=== PATIENT | female | born 1940 | race Hispanic/Latino ===

== ENCOUNTER 2019-08-13 23:52 | Inpatient (IN) | payer OTHER ==
[~2019-08-13] VITALS: Ht 175.3 cm; Wt 122.2 kg
[2019-08-14 00:35] LABS: BASOPHILS % (AUTO) 0.4 % (0.0-5.0); EOSINOPHILS % (AUTO) 1.2 % (0.0-8.0); HEMATOCRIT 37.8 % (36-48); LYMPHOCYTES % (AUTO) 11.7 % (21.0-51.0); MEAN CORPUSCULAR HEMOGLOBIN 25.4 pg (27.0-33.0); MEAN CORPUSCULAR HGB CONC 30.7 g/dL (32.0-36.0); MEAN CORPUSCULAR VOLUME 82.9 fL (79-99); MONOCYTES % (AUTO) 7.5 % (3.0-13.0); NEUTROPHILS % (AUTO) 78.8 % (40.0-77.0); PLATELET COUNT (AUTO) 291 K/uL (130-400); RED BLOOD CELL COUNT(AUTO) 4.56 MIL/uL (4.00-5.50); RED CELL DISTRIBUTION WIDTH 13.8 % (11.0-15.5); WHITE BLOOD COUNT (AUTO) 9.6 K/uL (4.8-10.8)
[2019-08-14 00:44] LABS: CREATININE 0.9 mg/dL (0.5-1.5)
[2019-08-14 00:48] LABS: INR 0.98 (0.85-1.15); PARTIAL THROMBOPLASTIN TIME 33.5 SEC (26.3-35.5); PROTHROMBIN TIME 10.6 SEC (9.6-11.6)
[2019-08-14 00:49] LABS: ALBUMIN 2.9 g/dL (3.5-5.0); BILIRUBIN,TOTAL 0.3 mg/dL (0.2-1.0); TOTAL PROTEIN, SERUM 8.4 g/dL (6.0-8.3)
[2019-08-14 00:52] LABS: CRP QUANTITATIVE 164.7 mg/L (0.00-9.0)
[2019-08-14 01:39] LABS: B-TYPE NATRIURETIC PEPTIDE 356 pg/mL (0-100); ERYTHROCYTE SEDIMENTATION RATE 63 MM/HR (0-30)
[2019-08-14] MEDS ORDERED: ZOSYN 3.375GM+NS 50ML 50 ML IV ONE (03:01)
[2019-08-14] MEDS ORDERED: ONDANSETRON HCL 4 MG/2 ML VIAL IV PRN (04:00)
[2019-08-14] MEDS ORDERED: ACETAMINOPHEN 325 MG TAB PO PRN ×2 (04:00)
[2019-08-14] MEDS ORDERED: GUAIFENESIN-DM 200/20 MG 10 ML PO PRN (04:00)
[2019-08-14] MEDS: ZOSYN 3.375GM+NS 50ML 50 ML IV SCH ×2 (05:15→15:31)
[2019-08-14] MEDS ORDERED: VANCOMYCIN PROTOCOL PER PHARMACY IV SCH (05:15)
--- NOTE | 2019-08-14 06:15 | NUR ---
Admission Assessment Received pt from ED per stretcher with granddaughter Aubrie Quintero, routine admission assessment done, plan of care discuss & reviewed all orders, re-discuss all lab works & aware pending results for the rest of the radiologic studies. Per Ms. Alfred stated that pt does not go to see her PCP, she takes care care of her wound the way she wanted it, applies some cream, covers it with toilet paper. Rt index finger claimed starts swelling last Thursday, left lower knee wound started last January 2019, the puncture like wound left lower leg has been years old, never closes. All wounds noted with purulent drainage, obtain specimen for culture on all sites, cleans with NS, pat dry, cover with 4x4 gauze, wrapped with Kerlix secure with Medipore tape. Lower extremity wound noted with slight foul odor. Pictures was taken but unable to print as non working printer available at this time. Ms. Alfred made aware to bring any medication pt has been taking, stated will being it later this PM. Pt refused to have any type of vaccination at this time.
[2019-08-14 08:17] VITALS: BP 145/81
[2019-08-14] MEDS: FAMOTIDINE 20MG TAB 20 MG TAB PO SCH ×2 (08:32→19:28)
[2019-08-14] MEDS: ENOXAPARIN SODIUM 30 MG/0.3 ML SQ SCH (08:32)
--- NOTE | 2019-08-14 08:45 | NUR ---
Re: wound drainage specimen Wound drainage specimen collected given to Lulu DASILVA as we are still pending order for it. Also made aware I am not able to print pictures of the wound as no working printer available at this time. Dr. Morris / Dr. Candelaria pending notification of the consults.
[2019-08-14 10:58] VITALS: BP 133/56
--- NOTE | 2019-08-14 11:49 | NUR ---
SPOKE WITH DR. MELGOZA MADE AWARE OF NEW CONSULT. WILL SEE PATIENT THIS AFTERNOON. PREPARE PATIENT FOR POSSIBLE I&D AT THE BEDSIDE
[2019-08-14] MEDS ORDERED: COMPOUND IV REFRIGERATED 1 EACH IVSOLN MISC PRN (12:00)
[2019-08-14] MEDS: VANCOMYCIN 1.25 GM in SODIUM CHLORIDE 0.9% 250 ML IV SCH ×2 (12:29→23:21)
[2019-08-14] MEDS ORDERED: LIDOCAINE HCL 1% 20 ML VIAL INJ SCH (12:30)
--- NOTE | 2019-08-14 14:55 | NUR ---
SPOKE WITH DR. MARTINEZ MADE AWARE OF NEW CONSULT. STATED WILL BE IN TO SEE PATIENT TOMORROW
[2019-08-14 15:41] VITALS: BP 140/70
--- NOTE | 2019-08-14 16:31 | NUR ---
SCOTT MIN VISITED WITH PATIENT. PATIENT SAYS SHE IS FROM [facility] HERE WITH A PASSPORT VISITING FAMILY. SAID SHE IS STAYING WITH DAUGHTER. THEY ARE WANTING TO MOVE HERE TO THE [facility] AND TRYING TO GET HER PAPERS. SAYS HAS A WALKER AND WHEEL CHAIR AT HOME. IF SHE GOES TO [facility] THEN SHE LIVES ALONE AND NEEDS HELP. I EXPLAINED THAT SINCE SHE IS DOES NOT HAVE INSURANCE FAMILY MIGHT NEED TO BE TAUGHT HOW TO DO WOUND CARE. SAID FAMILY WANTING HER TO MOVE IN WITH THEM ANYWAY. Addendum: 08/14/19 at 1634 by SERENA FLORIAN RN CM Amended: Links added.
[2019-08-14 19:55] VITALS: BP 132/64
[2019-08-14] MEDS ORDERED: MORPHINE SULFATE 2 MG/ML 1ML SYG IVP PRN (23:15)
[2019-08-14] MEDS ORDERED: MORPHINE SULFATE 2 MG/ML 1ML SYG ONE (23:23)
[2019-08-14 23:56] VITALS: BP 142/60
[2019-08-15] MEDS: ZOSYN 3.375GM+NS 50ML 50 ML IV SCH ×2 (03:45→18:19)
[2019-08-15 03:58] VITALS: BP 172/72
[2019-08-15 04:36] VITALS: BP 150/73
[2019-08-15 05:58] LABS: BASOPHILS % (AUTO) 0.4 % (0.0-5.0); EOSINOPHILS % (AUTO) 3.3 % (0.0-8.0); HEMATOCRIT 32.9 % (36-48); LYMPHOCYTES % (AUTO) 21.2 % (21.0-51.0); MEAN CORPUSCULAR HEMOGLOBIN 25.7 pg (27.0-33.0); MEAN CORPUSCULAR HGB CONC 30.7 g/dL (32.0-36.0); MEAN CORPUSCULAR VOLUME 83.7 fL (79-99); MONOCYTES % (AUTO) 8.3 % (3.0-13.0); NEUTROPHILS % (AUTO) 66.3 % (40.0-77.0); PLATELET COUNT (AUTO) 251 K/uL (130-400); RED BLOOD CELL COUNT(AUTO) 3.93 MIL/uL (4.00-5.50); RED CELL DISTRIBUTION WIDTH 14.2 % (11.0-15.5); WHITE BLOOD COUNT (AUTO) 7.8 K/uL (4.8-10.8)
[2019-08-15 06:41] LABS: CREATININE 0.8 mg/dL (0.5-1.5); POTASSIUM 3.6 mmol/L (3.5-5.1)
[2019-08-15 08:00] VITALS: BP 125/63
[2019-08-15] MEDS: SODIUM HYPOCHLORITE 0.5% [FULL STRENGTH] 473 ML TOPICAL SOLN TP SCH (09:15)
[2019-08-15] MEDS: FAMOTIDINE 20MG TAB 20 MG TAB PO SCH ×2 (10:30→22:34)
[2019-08-15] MEDS: ENOXAPARIN SODIUM 30 MG/0.3 ML SQ SCH (10:31)
[2019-08-15 12:00] VITALS: BP 140/75
[2019-08-15] MEDS: VANCOMYCIN 1.25 GM in SODIUM CHLORIDE 0.9% 250 ML IV SCH (13:57)
[2019-08-15 15:59] LABS: HEMOGLOBIN A1C 5.7 % (4.0-6.0)
[2019-08-15 16:00] VITALS: BP 140/74
[2019-08-15 20:00] VITALS: BP 135/69
[2019-08-16] VITALS (7 sets, daily range): BP systolic 134–174; BP diastolic 67–85
[2019-08-16] MEDS: VANCOMYCIN 1.25 GM in SODIUM CHLORIDE 0.9% 250 ML IV SCH ×2
[2019-08-16 04:05] LABS: BASOPHILS % (AUTO) 0.5 % (0.0-5.0); EOSINOPHILS % (AUTO) 5.2 % (0.0-8.0); HEMATOCRIT 32.1 % (36-48); LYMPHOCYTES % (AUTO) 23.2 % (21.0-51.0); MEAN CORPUSCULAR HEMOGLOBIN 25.3 pg (27.0-33.0); MEAN CORPUSCULAR HGB CONC 30.5 g/dL (32.0-36.0); MEAN CORPUSCULAR VOLUME 82.9 fL (79-99); MONOCYTES % (AUTO) 9.9 % (3.0-13.0); NEUTROPHILS % (AUTO) 60.9 % (40.0-77.0); PLATELET COUNT (AUTO) 223 K/uL (130-400); RED BLOOD CELL COUNT(AUTO) 3.87 MIL/uL (4.00-5.50); RED CELL DISTRIBUTION WIDTH 14.2 % (11.0-15.5); WHITE BLOOD COUNT (AUTO) 6.2 K/uL (4.8-10.8)
[2019-08-16 04:20] LABS: CREATININE 1.1 mg/dL (0.5-1.5); POTASSIUM 3.8 mmol/L (3.5-5.1)
[2019-08-16] MEDS: SODIUM HYPOCHLORITE 0.5% [FULL STRENGTH] 473 ML TOPICAL SOLN TP SCH (09:00)
[2019-08-16] MEDS: FAMOTIDINE 20MG TAB 20 MG TAB PO SCH ×2 (12:15→22:21)
[2019-08-16] MEDS: VANCOMYCIN 1.5 GM in SODIUM CHLORIDE 0.9% 250 ML IV SCH (12:16)
[2019-08-16] MEDS: ENOXAPARIN SODIUM 30 MG/0.3 ML SQ SCH (12:16)
--- NOTE | 2019-08-16 13:48 | NUR ---
RD Notification - Trigger Pt admitted for Left Leg cellulitis. Pt tolerating Heart Healthy diet order with no report of GI distress. Recommend to continue current diet order. Pt with Cellulitis and Left knee ulcer; Recommend Elmer BID, 500mg vitamin C QD, 220mg Zinc QD for wound healing support. RD to follow up with Weight loss nutrition education. RD to continue to monitor. Please notify RD as additional nutrition concerns arise. Thank you. Addendum: 08/16/19 at [address] RD Amended: Links added.
[2019-08-16] MEDS: ZOSYN 3.375GM+NS 50ML 50 ML IV SCH (17:26)
[2019-08-17 03:00] VITALS: BP 159/68
[2019-08-17 05:05] LABS: BASOPHILS % (AUTO) 0.5 % (0.0-5.0); EOSINOPHILS % (AUTO) 5.3 % (0.0-8.0); HEMATOCRIT 34.2 % (36-48); LYMPHOCYTES % (AUTO) 26.2 % (21.0-51.0); MEAN CORPUSCULAR HEMOGLOBIN 24.9 pg (27.0-33.0); MEAN CORPUSCULAR HGB CONC 29.8 g/dL (32.0-36.0); MEAN CORPUSCULAR VOLUME 83.4 fL (79-99); MONOCYTES % (AUTO) 7.5 % (3.0-13.0); NEUTROPHILS % (AUTO) 60.1 % (40.0-77.0); PLATELET COUNT (AUTO) 232 K/uL (130-400); RED CELL DISTRIBUTION WIDTH 13.9 % (11.0-15.5); WHITE BLOOD COUNT (AUTO) 5.6 K/uL (4.8-10.8)
[2019-08-17] MEDS: ZOSYN 3.375GM+NS 50ML 50 ML IV SCH ×2 (05:12→17:15)
[2019-08-17 05:18] LABS: CREATININE 0.8 mg/dL (0.5-1.5)
[2019-08-17 08:11] VITALS: BP 177/78
[2019-08-17] MEDS: FAMOTIDINE 20MG TAB 20 MG TAB PO SCH (09:36)
[2019-08-17] MEDS: ENOXAPARIN SODIUM 30 MG/0.3 ML SQ SCH (09:38)
[2019-08-17] MEDS: SODIUM HYPOCHLORITE 0.5% [FULL STRENGTH] 473 ML TOPICAL SOLN TP SCH (09:44)
[2019-08-17 11:12] VITALS: BP 142/88
[2019-08-17] MEDS: VANCOMYCIN 1.5 GM in SODIUM CHLORIDE 0.9% 250 ML IV SCH (12:16)
--- NOTE | 2019-08-17 13:07 | NUR ---
NOTE MADE OF CULTURES WILL ASK ABOUT PO LEVBUSHRAUIN ON DISCHARGE. Addendum: 08/17/19 at 1308 by LEANDRO LEONARD RN CM Amended: Links added.
--- NOTE | 2019-08-17 14:08 | NUR ---
Called Dr. Candelaria's office to set up follow up appointment in 2 weeks per written order. Per office staff, since patient self-pay, needs to come into office to make financial arrangements and than can schedule appointment.
[2019-08-17 16:00] VITALS: BP 157/73
[2019-08-17 19:00] VITALS: BP 164/75
--- NOTE | 2019-08-17 20:40 | NUR ---
Discharge instructions provided to patient and family, dressing changes demonstrated and described to family with emphasis on proper hand hygiene before, during and after wound care. Discharge pictures taken and patient instructed to follow up with physician once selected for progress of infection and wounds. Prescription for antibiotic given to patient and family, verbalized understanding.
== END 2019-08-17 21:40 | disposition home or self-care (01) | DRG 637 ==
LOC: EDH 23:52 → EDHIP 23:53 → 4CH 08-14 05:16
PROVIDERS: ADMIT Family Medicine; ATTEND Family Medicine
DX: E11.69 Type 2 diabetes mellitus with other specified complication (principal); J15.6 Pneumonia due to other Gram-negative bacteria; M86.8X4 Other osteomyelitis, hand; L03.116 Cellulitis of left lower limb; L02.511 Cutaneous abscess of right hand; L03.113 Cellulitis of right upper limb; L97.829 Non-pressure chronic ulcer of other part of left lower leg with unspecified severity; L03.011 Cellulitis of right finger; E66.01 Morbid (severe) obesity due to excess calories; Z68.39 Body mass index [BMI] 39.0-39.9, adult; I10 Essential (primary) hypertension; Z89.021 Acquired absence of right finger(s)
CPT/HCPCS: 36415; 71045; 73140; 73562; 73590; 80048; 80053; 80202; 82550; 82948; 83036; 83605; 83880; 84484; 85025; 85610; 85651; 85730; 86140; 87040; 87070; 87076; 87077; 87186; 93005; G0378; J1650; J2543; J3370; J7030

== ENCOUNTER 2021-06-14 00:57 | Inpatient (IN) | payer MEDICAID, OTHER ==
[~2021-06-14] VITALS: Ht 157.5 cm; Wt 108.0 kg
[2021-06-14 02:36] LABS: BASOPHILS % (AUTO) 0.3 % (0.0-5.0); EOSINOPHILS % (AUTO) 0.3 % (0.0-8.0); HEMATOCRIT 36.8 % (36-48); LYMPHOCYTES % (AUTO) 11.3 % (21.0-51.0); MEAN CORPUSCULAR HEMOGLOBIN 25.9 pg (27.0-33.0); MEAN CORPUSCULAR HGB CONC 31.3 g/dL (32.0-36.0); MEAN CORPUSCULAR VOLUME 82.9 fL (79-99); MONOCYTES % (AUTO) 9.3 % (3.0-13.0); NEUTROPHILS % (AUTO) 78.1 % (40.0-77.0); PLATELET COUNT (AUTO) 261 K/uL (130-400); RED BLOOD CELL COUNT(AUTO) 4.44 MIL/uL (4.00-5.50); RED CELL DISTRIBUTION WIDTH 14.1 % (11.0-15.5); WHITE BLOOD COUNT (AUTO) 14.7 K/uL (4.8-10.8)
[2021-06-14 02:48] LABS: CREATININE 1.2 mg/dL (0.5-1.5); POTASSIUM 3.8 mmol/L (3.5-5.1)
[2021-06-14 02:53] LABS: ALBUMIN 2.6 g/dL (3.5-5.0); BILIRUBIN,TOTAL 0.5 mg/dL (0.2-1.0); TOTAL PROTEIN, SERUM 7.6 g/dL (6.0-8.3)
[2021-06-14] MEDS ORDERED: ZOSYN 3.375GM +NS 50ML IV STA (04:11)
[2021-06-14] MEDS ORDERED: 0.9%NACL 50ML 50 ML IV ONE (04:23)
[2021-06-14] MEDS: ZOSYN 3.375GM+NS 50ML 50 ML IV SCH ×3 (05:00→20:46)
[2021-06-14 06:10] VITALS: BP 134/65
[2021-06-14 07:35] VITALS: BP 134/71
[2021-06-14 08:48] LABS: APPEARANCE,URINE CLOUDY (CLEAR); BILIRUBIN,URINE NEGATIVE (NEGATIVE); COLOR,URINE YELLOW (YELLOW); GLUCOSE, URINE (UA) NEGATIVE (NEGATIVE); KETONES,URINE NEGATIVE (NEGATIVE); LEUKOCYTE ESTERASE ,URINE MODERATE (NEGATIVE); NITRATE,URINE NEGATIVE (NEGATIVE); OCCULT BLOOD,URINE SMALL (NEGATIVE); PROTEIN,URINE 30 mg/dL (NEGATIVE); UROBILINOGEN,URINE 0.2 mg/dL (0.2-1.0)
[2021-06-14 09:06] LABS: BACTERIA,URINE Many /HPF (None Seen); RBC,URINE 0-1 /HPF (0-1); SQUAMOUS EPITHELIAL CELL,UR Few /HPF (0-2); WBC,URINE 51-100 /HPF (0-1)
[2021-06-14] MEDS: FAMOTIDINE 20MG TAB PO SCH (09:26)
[2021-06-14] MEDS: ENOXAPARIN SODIUM 40 MG/0.4 ML SYRINGE SQ SCH (09:31)
[2021-06-14 11:05] VITALS: BP 150/73
[2021-06-14 14:50] VITALS: BP 192/90
[2021-06-14] MEDS: ACETAMINOPHEN 325 MG TAB PO PRN (17:46)
[2021-06-14 19:48] VITALS: BP 140/71
[2021-06-15] VITALS: BP 143/74
[2021-06-15 04:01] VITALS: BP 160/87
[2021-06-15] MEDS: ZOSYN 3.375GM+NS 50ML 50 ML IV SCH ×3 (04:02→21:02)
[2021-06-15] MEDS: ACETAMINOPHEN 325 MG TAB PO PRN (04:02)
[2021-06-15 04:29] LABS: BASOPHILS % (AUTO) 0.3 % (0.0-5.0); EOSINOPHILS % (AUTO) 1.6 % (0.0-8.0); LYMPHOCYTES % (AUTO) 17.1 % (21.0-51.0); MEAN CORPUSCULAR HEMOGLOBIN 26.7 pg (27.0-33.0); MEAN CORPUSCULAR HGB CONC 31.8 g/dL (32.0-36.0); MONOCYTES % (AUTO) 9.9 % (3.0-13.0); NEUTROPHILS % (AUTO) 70.3 % (40.0-77.0); PLATELET COUNT (AUTO) 224 K/uL (130-400); RED BLOOD CELL COUNT(AUTO) 4.05 MIL/uL (4.00-5.50)
[2021-06-15 04:46] LABS: CREATININE 0.9 mg/dL (0.5-1.5); MAGNESIUM 2.2 mg/dL (1.80-2.40); PHOSPHORUS 3.1 mg/dL (2.5-4.9); POTASSIUM 3.5 mmol/L (3.5-5.1)
[2021-06-15 07:25] VITALS: BP 152/68
[2021-06-15] MEDS: FAMOTIDINE 20MG TAB PO SCH (08:58)
[2021-06-15] MEDS: ENOXAPARIN SODIUM 40 MG/0.4 ML SYRINGE SQ SCH (08:59)
[2021-06-15 11:20] VITALS: BP 126/51
[2021-06-15 15:15] VITALS: BP 139/116
[2021-06-15] MEDS ORDERED: IOHEXOL 350 MG/ML 100ML INFUS..BTL IV ONE (18:51)
[2021-06-15 20:04] VITALS: BP 181/83
[2021-06-16 00:29] VITALS: BP 171/75
[2021-06-16] MEDS ORDERED: HYDRALAZINE 20MG/ML VIAL ONE (01:09)
[2021-06-16] MEDS ORDERED: HYDRALAZINE 20MG/ML VIAL IV ONE (01:30)
[2021-06-16] MEDS ORDERED: MORPHINE 2 MG SYG IVP PRN (01:30)
[2021-06-16] MEDS: ZOSYN 3.375GM+NS 50ML 50 ML IV SCH ×3 (04:48→22:00)
[2021-06-16 05:00] VITALS: BP 163/73
[2021-06-16 05:10] LABS: BASOPHILS % (AUTO) 0.3 % (0.0-5.0); HEMATOCRIT 34.8 % (36-48); LYMPHOCYTES % (AUTO) 27.3 % (21.0-51.0); MEAN CORPUSCULAR HEMOGLOBIN 25.3 pg (27.0-33.0); MEAN CORPUSCULAR HGB CONC 30.7 g/dL (32.0-36.0); MEAN CORPUSCULAR VOLUME 82.3 fL (79-99); MONOCYTES % (AUTO) 10.3 % (3.0-13.0); NEUTROPHILS % (AUTO) 57.6 % (40.0-77.0); PLATELET COUNT (AUTO) 233 K/uL (130-400); RED BLOOD CELL COUNT(AUTO) 4.23 MIL/uL (4.00-5.50); RED CELL DISTRIBUTION WIDTH 14.1 % (11.0-15.5); WHITE BLOOD COUNT (AUTO) 6.3 K/uL (4.8-10.8)
[2021-06-16 05:22] LABS: CREATININE 0.8 mg/dL (0.5-1.5); POTASSIUM 3.4 mmol/L (3.5-5.1)
[2021-06-16] MEDS ORDERED: POTASSIUM CHLORIDE 10% ELIXIR 20 MEQ/15 ML UDCUP PO PRN (06:00)
[2021-06-16] MEDS: KCL 20 MEQ ERTAB PO PRN ×2 (06:25→08:26)
[2021-06-16 07:30] VITALS: BP 122/74
[2021-06-16] MEDS: METOPROLOL TARTRATE 25 MG TAB PO SCH ×2 (08:25→22:00)
[2021-06-16] MEDS: FAMOTIDINE 20MG TAB PO SCH (08:25)
[2021-06-16] MEDS: ENOXAPARIN SODIUM 40 MG/0.4 ML SYRINGE SQ SCH (08:26)
[2021-06-16 11:00] VITALS: BP 148/60
[2021-06-16 17:04] VITALS: BP 163/58
[2021-06-16 20:00] VITALS: BP 152/69
[2021-06-17] VITALS (7 sets, daily range): BP systolic 146–167; BP diastolic 59–88
[2021-06-17 04:49] LABS: CREATININE 0.9 mg/dL (0.5-1.5); POTASSIUM 4.2 mmol/L (3.5-5.1)
[2021-06-17] MEDS: ZOSYN 3.375GM+NS 50ML 50 ML IV SCH ×3 (04:52→20:23)
[2021-06-17] MEDS: ENOXAPARIN SODIUM 40 MG/0.4 ML SYRINGE SQ SCH (09:00)
[2021-06-17] MEDS: FAMOTIDINE 20MG TAB PO SCH (10:28)
[2021-06-17] MEDS: METOPROLOL TARTRATE 25 MG TAB PO SCH ×2 (10:28→20:23)
[2021-06-17] MEDS ORDERED: LIDOCAINE HCL MPF 1% 5ML VIAL ONE (15:01)
[2021-06-17] MEDS ORDERED: LIDOCAINE HCL MPF 1% 5ML VIAL IV SCH (20:30)
[2021-06-17] MEDS: SODIUM HYPOCHLORITE 0.125% 473 ML SOLUTION TP SCH (20:46)
[2021-06-18 03:48] VITALS: BP 151/73
[2021-06-18] MEDS: ZOSYN 3.375GM+NS 50ML 50 ML IV SCH (04:57)
[2021-06-18 08:04] VITALS: BP 143/73
[2021-06-18] MEDS: SODIUM HYPOCHLORITE 0.125% 473 ML SOLUTION TP SCH ×2 (09:00→21:16)
[2021-06-18] MEDS: FAMOTIDINE 20MG TAB PO SCH (09:51)
[2021-06-18] MEDS: ENOXAPARIN SODIUM 40 MG/0.4 ML SYRINGE SQ SCH (09:51)
[2021-06-18] MEDS: METOPROLOL TARTRATE 25 MG TAB PO SCH ×2 (09:52→21:16)
[2021-06-18 12:00] VITALS: BP 177/74
[2021-06-18] MEDS: CEFTRIAXONE 2GM VIAL IVP SCH (12:19)
[2021-06-18 16:00] VITALS: BP 151/75
[2021-06-18 20:00] VITALS: BP 141/91
[2021-06-19] VITALS: BP 153/71
[2021-06-19 04:00] VITALS: BP 152/70
[2021-06-19 07:30] VITALS: BP 174/71
[2021-06-19] MEDS: FAMOTIDINE 20MG TAB PO SCH (08:27)
[2021-06-19] MEDS: METOPROLOL TARTRATE 25 MG TAB PO SCH ×2 (08:28→21:13)
[2021-06-19] MEDS: ENOXAPARIN SODIUM 40 MG/0.4 ML SYRINGE SQ SCH (08:28)
[2021-06-19] MEDS: SODIUM HYPOCHLORITE 0.125% 473 ML SOLUTION TP SCH ×2 (08:28→21:13)
[2021-06-19 12:00] VITALS: BP 148/69
[2021-06-19] MEDS: CEFTRIAXONE 2GM VIAL IVP SCH (12:02)
[2021-06-19 17:41] VITALS: BP 160/71
[2021-06-19 20:00] VITALS: BP 165/74
[2021-06-19] MEDS: ACETAMINOPHEN 325 MG TAB PO PRN (21:20)
[2021-06-20] VITALS: BP 160/80
[2021-06-20 03:53] VITALS: BP 170/80
[2021-06-20 04:00] VITALS: BP 155/68
[2021-06-20] MEDS: FAMOTIDINE 20MG TAB PO SCH (08:14)
[2021-06-20] MEDS: METOPROLOL TARTRATE 25 MG TAB PO SCH (08:14)
[2021-06-20] MEDS: ENOXAPARIN SODIUM 40 MG/0.4 ML SYRINGE SQ SCH (08:15)
[2021-06-20 08:30] VITALS: BP 163/78
[2021-06-20] MEDS: CEFTRIAXONE 2GM VIAL IVP SCH (10:34)
[2021-06-20 11:49] VITALS: BP 148/67
[2021-06-20] MEDS: SODIUM HYPOCHLORITE 0.125% 473 ML SOLUTION TP SCH (12:00)
[2021-06-20] MEDS ORDERED: LEVO500T90 PO (12:08)
[2021-06-20] MEDS ORDERED: METO25TA6 PO (12:08)
[2021-06-20] MEDS ORDERED: LISI5TAB21 PO (12:08)
[2021-06-20] MEDS ORDERED: CEFU500T67 PO (12:08)
[2021-06-20] MEDS ORDERED: LISINOPRIL 5 MG TABLET PO SCH (12:30)
[2021-06-20 12:41] LABS: BASOPHILS % (AUTO) 0.9 % (0.0-5.0); EOSINOPHILS % (AUTO) 5.6 % (0.0-8.0); HEMATOCRIT 39.3 % (36-48); LYMPHOCYTES % (AUTO) 23.1 % (21.0-51.0); MEAN CORPUSCULAR VOLUME 86.6 fL (79-99); MONOCYTES % (AUTO) 6.8 % (3.0-13.0); NEUTROPHILS % (AUTO) 61.5 % (40.0-77.0); PLATELET COUNT (AUTO) 281 K/uL (130-400); RED BLOOD CELL COUNT(AUTO) 4.54 MIL/uL (4.00-5.50); RED CELL DISTRIBUTION WIDTH 14.3 % (11.0-15.5)
[2021-06-20 12:45] LABS: CREATININE 0.9 mg/dL (0.5-1.5); POTASSIUM 3.6 mmol/L (3.5-5.1)
[2021-06-20 12:49] LABS: ALBUMIN 2.6 g/dL (3.5-5.0); BILIRUBIN,TOTAL 0.1 mg/dL (0.2-1.0); CRP QUANTITATIVE 29.7 mg/L (0.00-9.0); TOTAL PROTEIN, SERUM 7.4 g/dL (6.0-8.3)
[2021-06-20] MEDS ORDERED: METRONIDAZOLE 500 MG TABLET PO SCH (14:30)
[2021-06-20 14:47] LABS: ERYTHROCYTE SEDIMENTATION RATE 68 MM/HR (0-30)
[2021-06-20] MEDS ORDERED: SODIUM HYPOCHLORITE 0.125% 473 ML SOLUTION TP SCH (21:00)
== END 2021-06-20 14:30 | disposition home or self-care (01) | DRG 872 ==
LOC: EDH 00:57 → EDHIP 00:58 → 3CH 05:20 → 4DH 06-20 05:45
PROVIDERS: ADMIT Internal Medicine; ATTEND Internal Medicine
PROC: 0HBLXZX Excision of Left Lower Leg Skin, External Approach, Diagnostic (ICD-10-PCS; principal; 2021-06-17)
DX: A41.50 Gram-negative sepsis, unspecified (principal); L03.116 Cellulitis of left lower limb; N39.0 Urinary tract infection, site not specified; E44.0 Moderate protein-calorie malnutrition; L97.829 Non-pressure chronic ulcer of other part of left lower leg with unspecified severity; Z68.41 Body mass index [BMI] 40.0-44.9, adult; S81.802A Unspecified open wound, left lower leg, initial encounter; I10 Essential (primary) hypertension; G89.29 Other chronic pain; E66.9 Obesity, unspecified; Z20.822 Contact with and (suspected) exposure to COVID-19; Y93.89 Activity, other specified; Y92.89 Other specified places as the place of occurrence of the external cause; Y99.8 Other external cause status; Z89.021 Acquired absence of right finger(s); Z91.19 Patient's noncompliance with other medical treatment and regimen; Z82.3 Family history of stroke; Z80.0 Family history of malignant neoplasm of digestive organs; Z82.49 Family history of ischemic heart disease and other diseases of the circulatory system
CPT/HCPCS: 36415; 71045; 73562; 73600; 73702; 80048; 80053; 81001; 82550; 83605; 83735; 84100; 84145; 84484; 85025; 85651; 86140; 87040; 87070; 87076; 87077; 87088; 87186; 87635; 93005; 93925; G0378; J0360; J0696; J1650; J2543; J3490; Q9967

== ENCOUNTER 2023-03-12 13:34 | Emergency (ER) | payer MEDICAID, OTHER ==
[~2023-03-12 13:34] MED LIST: CEFU500T67 PO; LEVO-70 PO; LISI5TAB21 PO; METO25TA6 PO
== END 2023-03-12 13:53 | disposition left against medical advice (07) ==
LOC: EDH 13:34
DX: R68.89 Other general symptoms and signs (principal); Z53.21 Procedure and treatment not carried out due to patient leaving prior to being seen by health care provider